=== PATIENT | male | born 1945 | race Caucasian/White ===

== ENCOUNTER 2017-05-30 07:15 | Observation (INO) | payer MEDICARE, BC ==
[2017-05-30] VITALS (11 sets, daily range): BP systolic 130–167; BP diastolic 57–86
[~2017-05-30] VITALS: Ht 175.3 cm; Wt 104.3 kg
--- NOTE | ~2017-05-30 | H ---
[address] [address] HISTORY AND PHYSICAL Name: MARIA G BASILIO Room: [address] Katya Thomas#: [id number] Admission: 05/30/17 Attend Phys: Adalberto Nesbitt MD Discharge: 05/31/17 Date of : 41 Report #: [id number] THIS REPORT FOR: //name// Please refer to the History and Physical performed in the physician's office. By: [facility] Staff CHAVO /SARAH
[2017-05-30 08:13] LABS: HEMATOCRIT 37.7 % (42.0-52.0); HEMOGLOBIN 13.4 gm/dL (14.0-18.0); MCH 32.3 pg (26.0-34.0); MCHC 35.6 g/dL (28.0-37.0); RBC 4.14 mil/uL (4.50-6.00); WBC 3.6 thou/uL (4.0-11.0)
[2017-05-30] MEDS ORDERED: COZAAR 50 MG TA50 M2 PO (08:23)
[2017-05-30] MEDS ORDERED: LIPITOR10 MG PO (08:23)
[2017-05-30] MEDS ORDERED: OMEPRAZOLE 20 M20 M1 PO (08:24)
[2017-05-30] MEDS ORDERED: COREG25 MG PO (08:24)
[2017-05-30] MEDS ORDERED: ASPIR 8181 MG PO (08:25)
[2017-05-30] MEDS ORDERED: FISH OIL 1,001000 M2 PO (08:25)
[2017-05-30 08:26] LABS: APTT 26.8 Seconds (25.0-31.3); INR 1.1; PROTIME 10.9 Seconds (9.20-11.50)
[2017-05-30] MEDS ORDERED: UNICOMPLEX M TA1 TA1 PO (08:26)
[2017-05-30] MEDS ORDERED: GLUCOSAMINE HC500 MG PO (08:27)
[2017-05-30 08:28] LABS: ANION GAP 11 mmol/L (7-16); BUN 13 mg/dL (7-18); CALCIUM 8.5 mg/dL (8.5-10.1); CHLORIDE 103 mmol/L (98-107); CO2 27 mmol/L (21-32); CREATININE 0.9 mg/dL (0.6-1.3); GLUCOSE 168 mg/dL (70-99); POTASSIUM 4.5 mmol/L (3.5-5.1); SODIUM 141 mmol/L (136-145)
[2017-05-30 08:33] LABS: ALKALINE PHOSPHATASE 66 U/L (46-116); CHOLESTEROL 140 mg/dL (<200); HDL CHOLESTEROL 55 mg/dL (>40); LDL CHOLESTEROL 74 mg/dL (<100); SGOT 18 U/L (15-37); SGPT 33 U/L (30-65); TC:HDL 2.5 Ratio (Not establshd); TOTAL BILIRUBIN 0.6 mg/dL (<0.1-1.0); TOTAL PROTEIN 7.2 g/dL (6.4-8.2); TRIGLYCERIDE 57 mg/dL (<150); VLDL 11 mg/dL (<40)
[2017-05-30 08:49] LABS: SERUM ASSESSMENT Clear
--- NOTE | 2017-05-30 12:00 | NUR ---
POST HAERT CATH TO 225 REPORT GIVEN AT BEDSIDE PATIENT WITHOUT C/O PAIN R GROIN SITE ASSESSED, SCANT AMT OF BLD, WILL CONT TO MONITOR INSTRUCTION GIVEN ON ACTIVITY RESTRICTIONS SPOUSE AT BEDSIDE BOTH ORIENTED TO AND CALL LIGHT
--- NOTE | 2017-05-30 18:21 | NUR ---
PATIENT SITTING UP IN BED AND WATCHING TV AT BEDSIDE REMAINS A AND O X 4 SB/1ST DEGR LUNGS CTA/DIM/RA O2 SATS MID 90S C/O SOA AT TIMES, IMPROVING WILL CONT TO MONITOR DR NOTIFIED GOOD APPETIE LAST BM REPORTED T-1 GOOD UO APPROX 600CC+ DARK YELLOW URINE UP WITH STANDBY IV 20 GA L HAND IVF NS AT 125CC R GROIN SITE NO EDEMA SCANT DRY BLD DIME SIZE CONT TO MONITOR NO C/O PAIN CALL LIGHT IN REACH AND INSTRUCTION GIVEN AND FOLLOWED
[2017-05-31] VITALS: BP 131/71
--- NOTE | 2017-05-31 01:39 | NUR ---
RECIEVED REPORT AT 1930. ASSESSMENT COMPLETED CHARTED. NO C/O PAIN OR DISCOMFORT. POST TRONIC MACHINE OPERATOR INSERTION SITE IS BRUISED BUT SOFT, NO PAIN ASSOCIATED WITH AREA. PT ABLE TO MAKE NEEDS KNOWN, CALL LIGHT WITHIN REACH, IV IN LEFT FOREARM RUNNING NS AT 125. POSSIBLE DISCHARGE TOMORROW. WILL CONTINUE WITH PLAN OF CARE.
[2017-05-31 04:00] VITALS: BP 162/81
[2017-05-31 05:30] LABS: HEMATOCRIT 33.3 % (42.0-52.0); MCH 32.8 pg (26.0-34.0); MCHC 35.9 g/dL (28.0-37.0); MCV 91.3 fL (80.0-100.0); MPV 8.1 fl. (7.2-11.1); RBC 3.65 mil/uL (4.50-6.00); RDW-CV 13.8 % (10.5-14.5); WBC 4.8 thou/uL (4.0-11.0)
[2017-05-31 05:52] LABS: ALBUMIN 3.6 g/dL (3.4-5.0); ALKALINE PHOSPHATASE 57 U/L (46-116); ANION GAP 7 mmol/L (7-16); BUN 9 mg/dL (7-18); CALCIUM 8.3 mg/dL (8.5-10.1); CHLORIDE 107 mmol/L (98-107); CO2 30 mmol/L (21-32); CREATININE 0.9 mg/dL (0.6-1.3); GLUCOSE 132 mg/dL (70-99); POTASSIUM 3.7 mmol/L (3.5-5.1); SGOT 13 U/L (15-37); SGPT 27 U/L (30-65); SODIUM 144 mmol/L (136-145); TOTAL BILIRUBIN 0.5 mg/dL (<0.1-1.0); TOTAL PROTEIN 6.2 g/dL (6.4-8.2); TROPONIN-I LEVEL <0.06 ng/mL (<0.06)
--- NOTE | 2017-05-31 07:20 | NUR ---
CHANGE OF SHIFT BEDSIDE REPORT GIVEN PATIENT SEEN AT BEDSIDE IN BED WATCHING TV NO REQUESTS AT THIS TIME ASSUMED PATIENT CARE
[2017-05-31 08:00] VITALS: BP 170/83
[2017-05-31 10:25] VITALS: BP 156/86
[2017-05-31 11:57] VITALS: BP 156/86
[2017-05-31] MEDS ORDERED: BRILINTA90 MG PO (11:57)
[2017-05-31 12:00] VITALS: BP 156/86
--- NOTE | 2017-05-31 13:08 | CARD ---
[address] [address] CARDIAC CATH REPORT Name: MARIA G BASILIO Room: [address] Katya Thomas#: [id number] Admission: 05/30/17 Attend Phys: Adalberto Nesbitt MD Discharge: Date of : 43 Report #: [id number] THIS REPORT FOR: //name// APPROVED REPORT Study performed: 05/30/2017 08:30:57 Patient Details Patient Status: Out-Patient Room #: The patient is a 72 year-old male Event Personnel Jose M Martinez Marine Services Technician, Elva Longoria RN Cow Tester, Sean Curiel (R) Monitor, Moisés, Esmer Mindy RTR Scrub Procedures Performed Art Access - R femoral artery* LILA Place w/wo Plasty Single LAD [id number] Hemostasis w/ Angioseal , Left Heart Catheterization Indication Unstable angina Risk Factors Hypercholesterolemia, Hypertension Admission/Lab Medications/Medications given during procedure Aspirin, Platelet Aff. Inhib., Heparin Unfract., Angiomax bolus and infusion Procedure Narrative The patient was brought electively to the Cardiac Catheterization Laboratory and was prepped and draped in a sterile manner. The right femoral was infiltrated with 2% Lidocaine subcutaneous anesthesia. A Boody 6 FR sheath was inserted into the right femoral artery. Coronary angiography was performed using coronary diagnostic catheters. The right coronary system was accessed and visualized with a Diagnostic catheter. The left coronary system was accessed and visualized with a Diagnostic catheter. The left ventricle was accessed and visualized with a Diagnostic catheter. Left ventricular/Aortic Valve gradient assessed via catheter pullback. Left ventriculogram was performed in MARTINEZ projection. Pre-demployment femoral angiogram was performed . Closure device was deployed with a Fr Angioseal STS 6Fr. The patient tolerated [place] [address] CARDIAC CATH REPORT Name: MARIA G BASILIO Room: [address]#: [id number] Admission: 05/30/17 Attend Phys: Adalberto Nesbitt MD Discharge: Date of : 41 Report #: [id number] there were no complications associated with the procedure. There was no hematoma. Intraoperative Conscious Sedation Sedation start time: 942 Case end Time: 1108 Fentanyl 50 mcg Versed 2 mg Dose: 4045 mGy Contrast Type and Amount: Visipaque 540 ml Coronary Angiography The patient's coronary anatomy is right dominant. Diagnostic Cath Left Main 10% distal narrowing LAD 80 Percent tubular mid LAD stenosis Circumflex 50% calcified proximal circumflex stenosis Right Coronary 100% mid right coronary occlusion with prominent [id number]-[id number] collaterals filling the distal right coronary artery Left Ventriculography The left ventricle is normal in size with normal contractility. The left ventricular ejection fraction is estimated to be 60%. Left ventricular wall motion abnormalities are not present. There is no mitral insufficiency. IVUS Anticoagulation was achieved with Heparin. IVUS Findings FFR was performed on the mid LAD segment with a minimum value of 0.78 without requirement for adenosine provocation, reflecting hemodynamic significance. Hemodynamics The aortic pressure is 107/53 mmHg with a mean of 75 mmHg. The left ventricular pressure is 111/8 mmHg with a mean of mmHg. The left ventricular end diastolic pressure is 14 mmHg. There was no gradient across the aortic valve upon pullback. PCI Technique Lesion Anticoagulation was achieved with Angiomax. Patient was preloaded with Ticagrelor PO 180 mg. Percutaneous coronary intervention was performed on the proximal left anterior [place] [address] CARDIAC CATH REPORT Name: MARIA G BASILIO Room: [address] M.R.#: [id number] Admission: 05/30/17 Attend Phys: Adalberto Nesbitt MD Discharge: Date of : 43 Report #: [id number] The lesion stenosis prior to intervention was 80% with ANGELA 3 flow. A 6FR XB 3.5 100CM Guide Catheter was used to engage the ostium. BALLOON DILATION A Balloon catheter Trek RX 2.5 X 15 was inserted and inflated up to 12.00atm for 13seconds. Additional Inflation: 12.00atm for 15seconds. STENT DEPLOYMENT A drug-eluting stent Xience Alpine RX 2.5X33, 2.25x8 was inserted and inflated up to 12.00atm for 14seconds. Additional Inflation: 14.00atm for 18seconds. Another Drug Eluting stent used it was a Xience Alpine RX 2.25x8 was inserted and inflated up to 10 devon for 12 seconds. Additional Inflation of 11 devon for 11 seconds. POST STENT DEPLOYMENT BALLOON DILATION A Balloon catheter NC Trek RX 2.5 X 12 was inserted and inflated up to 12.00atm for 12seconds. Additional Inflation: 15.00atm for 14seconds. Additional Inflation: 18.00atm for 13seconds. A Balloon Catheter NC Trek RX 2.75x12 was inserted and inflated up to 15 devon for 14 seconds. Additional Inflation 17 devon for 12 seconds. Additional Inflation 18 devon for 13 seconds. Final angiography reveals 10 % stenosis with ANGELA 3 flow. BALLOON DILATION A Balloon catheter FFR was performed on the mid LAD segment with a minimum value of 0.78 without requirement for adenosine provocation, reflecting hemodynamic significance. was inserted and inflated up to devon for seconds. Conclusion #1 significant coronary artery disease characterized by the following: A 10% distal left main coronary artery narrowing, B 80% calcified tubular mid LAD stenosis with 75% distal apical narrowing, C 50% calcified proximal circumflex stenosis, D dominant right coronary artery which is 100% occluded in its midportion with hljs-fu-jfsya collaterals filling the distal [place] [address] CARDIAC CATH REPORT Name: MARIA G BASILIO Room: [address] Katya Thomas#: [id number] Admission: 05/30/17 Attend Phys: Adalberto Nesbitt MD Discharge: Date of : 41 Report #: [id number] #2 normal left ventricular systolic function, estimated ejection fraction being 60% #3 normal left-sided hemodynamics study #4 fractional flow reserve performed on the moderately severe mid LAD stenosis with a minimum value 0.78 without requirement for adenosine provocation, suggesting hemodynamic significance #5successful percutaneous coronary intervention at the site of 80% tubular mid LAD stenosis with deployment of 2 drug-eluting stents with 10% residual narrowing following stent deployment and ANGELA-3 flow to the distal vessel. Recommendations Cardiac Rehabilitation Referral Aggressive Medical Therapy Medications Administered Aspirin (any) Ticagrelor Diagnostic Cath Approved by: Jose M Martinez MD Date/Time: 05/31/17 at 1305 hrs <ELECTRONICALLY SIGNED> By: Jose M Martinez MD, FAC 05/31/17 1308 1308 1308Jotanisha Martinez MD, FACC /INF
--- NOTE | 2017-05-31 13:30 | NUR ---
PATIENT DCD TO HOME DC INFO GIVEN AND ACKNOWLEDGED AND SIGNED COPIES GIVEN IV AND HEART MONITOR REMOVED PERSONAL BELONGINGS RETURNED PATIENT ASSISTED OUT VIA WC GOOD CONDITION TO WAITING CAR
--- NOTE | 2017-05-31 17:21 | EKG ---
[place] [address] ELECTROCARDIOGRAM REPORT Name: PRAFULMARIA G Anh Room: [address]#: [id number] Admission: 05/30/17 Attend Phys: Adalberto Nesbitt MD Discharge: 05/31/17 Date of : 43 Report #: [id number] THIS REPORT FOR: //name// [facility] Test Date: 2017-05-30 Test Time: 08:42:22 Pat Name: MARIA G BASILIO Department: Room: [facility] Gender: M Drafter Electronic: : 1945 Requested By: Jose M Martinez Order Number: [id number] Anali MD: Adalberto Nesbitt Measurements Intervals [place] Rate: 51 P: 29 CO: 211 QRS: -30 QRSD: 108 T: 33 QT: 457 QTc: 421 Interpretive Statements Sinus rhythm Left axis deviation No previous ECG available for comparison Electronically Signed On 05-31-2017 17:21:22 CDT by Adalberto Nesbitt [email or web address] <ELECTRONICALLY SIGNED> By: Adalberto Nesbitt MD, [facility] 05/31/17 1721 0842 0842 Adalberto Nesbitt MD, FACC /EPI
--- NOTE | 2017-05-31 17:25 | EKG ---
[place] [address] ELECTROCARDIOGRAM REPORT Name: BASILIOMARIA G Anh Room: [address]#: [id number] Admission: 05/30/17 Attend Phys: Adalberto Nesbitt MD Discharge: 05/31/17 Date of : 41 Report #: [id number] THIS REPORT FOR: //name// [facility] Test Date: 2017-05-30 Test Time: 14:45:47 Pat Name: MARIA G BASILIO Department: Room: [facility] Gender: M Front Edger: 27 : 1945 Requested By: Jose M Martinez Order Number: [id number] Anali MD: Adalberto Nesbitt Measurements Intervals [place] Rate: 56 P: 37 DE: 213 QRS: -35 QRSD: 110 T: 41 QT: 435 QTc: 420 Interpretive Statements Sinus rhythm Borderline prolonged DE interval Left axis deviation No previous ECG available for comparison Electronically Signed On 05-31-2017 17:24:56 CDT by Adalberto Nesbitt [email or web address] <ELECTRONICALLY SIGNED> By: Adalberto Nesbitt MD, [facility] 05/31/17 1724 1445 1445 Adalberto Nesbitt MD, FACC /EPI
--- NOTE | 2017-05-31 17:27 | EKG ---
[place] [address] ELECTROCARDIOGRAM REPORT Name: PRAFULMARIA G Anh Room: [address]#: [id number] Admission: 05/30/17 Attend Phys: Adalberto Nesbitt MD Discharge: 05/31/17 Date of : 41 Report #: [id number] THIS REPORT FOR: //name// [facility] Test Date: 2017-05-31 Test Time: 07:45:56 Pat Name: MARIA G BASILIO Department: Room: [facility] Gender: M Supervisor Agency Appointments: HECTOR : 1945 Requested By: Jose M Martinez Order Number: [id number] Anali MD: Adalberto Nesbitt Measurements Intervals [place] Rate: 59 P: 7 MS: 203 QRS: -35 QRSD: 110 T: 38 QT: 434 QTc: 430 Interpretive Statements Sinus rhythm Left axis deviation Abnormal R-wave progression, late transition No previous ECG available for comparison Electronically Signed On 05-31-2017 17:26:46 CDT by Adalberto Nesbitt [email or web address] <ELECTRONICALLY SIGNED> By: Adalberto Nesbitt MD, [facility] 05/31/17 1726 4 Adalberto Nesbitt MD, FACC /EPI
--- NOTE | 2017-06-01 09:56 | D ---
[address] [address] DISCHARGE SUMMARY Name: MARIA G BASILIO Room: [address] Katya Thomas#: [id number] Admission: 05/30/17 Attend Phys: Adalberto Nesbitt MD Discharge: 05/31/17 Date of : 43 Report #: [id number] THIS REPORT FOR: //name// CC: Adalberto Roque DATE OF SERVICE: 05/31/2017 HOSPITAL COURSE: The patient is a very pleasant 72-year-old male presented with chest discomfort on exertion, quite typical of angina with an increase in frequency and severity of episodes of late. He has underlying hypertension, hypercholesterolemia and moderate weight excess. In this context, he underwent cardiac catheterization on 05/30/2017 and that study revealed tubular 80% calcified mid LAD stenosis and I performed FFR on that with a minimal value of 0.78 without provocation with adenosine. This clearly suggested hemodynamic significance. I deployed 2 drug-eluting stents in the mid LAD with 0% residual narrowing and ANGELA 3 flow of the distal vessel. He did well post-procedurally and there was good hemostasis at the right femoral site of catheterization. He also had a 50%-60% calcified proximal circumflex stenosis, which I did not approach in that setting. The patient ambulated in the hallways without difficulty and there was minimal ecchymosis of the right femoral site of catheterization. Lab revealed a sodium 144, potassium 3.7, BUN 9, creatinine 0.9, hemoglobin 12.0, white blood cell count 4800 with 150,000 platelets. Cholesterol 140, triglycerides 57, HDL 55, LDL 74 mg percent. He was discharged to home in stable condition on the following medications: Aspirin 81 mg daily, atorvastatin 10 mg at bedtime, carvedilol 25 mg b.i.d., fish oil 1000 mg daily, glucosamine 500 mg daily, losartan 100 mg daily, multivitamin with iron 1 tablet daily, omeprazole 20 mg daily, and ticagrelor 90 mg b.i.d. He is scheduled to return to see me in 2 weeks with continuing care with Dr. Nesbitt subsequent to that initial visit. FINAL DISCHARGE DIAGNOSES: 1. Unstable angina. 2. Coronary artery disease. 3. Status post percutaneous transluminal coronary angioplasty with stenting of the mid left anterior descending. 4. Hypercholesterolemia. 5. [place] [address] DISCHARGE SUMMARY Name: MARIA G BASILIO Room: [address] William#: [id number] Admission: 05/30/17 Attend Phys: Adalberto Nesbitt MD Discharge: 05/31/17 Date of : 41 Report #: [id number] 6. Moderate weight excess. PROCEDURES: 05/30/2017 - left heart catheterization, left ventriculography, selective coronary arteriography and percutaneous coronary intervention of the mid LAD. Thus, the patient is discharged to home in stable condition on the aforementioned medications with followup as iterated above. <ELECTRONICALLY SIGNED> By: Jose M Martinez MD, FAC 06/01/17 0956 1033 1105John Olu Martinez MD, FAC /nt
== END 2017-05-31 13:30 | disposition home or self-care (01) ==
LOC: M.CL 07:15 → M.TBA-CV 11:30 → M.2W 11:30
PROVIDERS: Internal Medicine; ADMIT Internal Medicine Cardiovascular Disease
DX: I25.110 Atherosclerotic heart disease of native coronary artery with unstable angina pectoris (principal); I10 Essential (primary) hypertension; E78.00 Pure hypercholesterolemia, unspecified; E11.9 Type 2 diabetes mellitus without complications; R63.5 Abnormal weight gain; Z82.49 Family history of ischemic heart disease and other diseases of the circulatory system; Z87.891 Personal history of nicotine dependence

== ENCOUNTER 2017-07-30 08:26 | Observation (INO) | payer MEDICARE, BC ==
[~2017-07-30] VITALS: Ht 175.3 cm; Wt 100.7 kg
[2017-07-30] VITALS (10 sets, daily range): BP systolic 154–190; BP diastolic 72–108
--- NOTE | ~2017-07-30 | H ---
[address] [address] HISTORY AND PHYSICAL Name: MARIA G BASILIO Room: [address] Katya Thomas#: [id number] Admission: 07/30/17 Attend Phys: Jose M Martinez MD, Discharge: 07/31/17 Date of : 41 Report #: [id number] THIS REPORT FOR: //name// Please refer to the History and Physical performed in the physician's office. By: [id number] Records Staff CHAVO /SARAH
[~2017-07-30 08:26] MED LIST: ASPIR 8181 MG PO; BRILINTA90 MG PO; COREG25 MG PO; COZAAR 50 MG TA50 M2 PO; FISH OIL 1,001000 M2 PO; GLUCOSAMINE HC500 MG PO; LIPITOR10 MG PO; OMEPRAZOLE 20 M20 M1 PO; UNICOMPLEX M TA1 TA1 PO
[2017-07-30 09:07] LABS: HEMATOCRIT 38.7 % (42.0-52.0); HEMOGLOBIN 13.2 gm/dL (14.0-18.0); MCH 31.7 pg (26.0-34.0); MCHC 34.2 g/dL (28.0-37.0); MCV 92.7 fL (80.0-100.0); MPV 8.1 fl. (7.2-11.1); RBC 4.18 mil/uL (4.50-6.00); RDW-CV 13.5 % (10.5-14.5); WBC 3.3 thou/uL (4.0-11.0)
[2017-07-30 09:16] LABS: APTT 27.1 Seconds (25.0-31.3); INR 1.1; PROTIME 10.6 Seconds (9.20-11.50)
[2017-07-30 09:18] LABS: ANION GAP 8 mmol/L (7-16); BUN 14 mg/dL (7-18); CALCIUM 9.1 mg/dL (8.5-10.1); CHLORIDE 105 mmol/L (98-107); CO2 28 mmol/L (21-32); CREATININE 0.9 mg/dL (0.6-1.3); GLUCOSE 149 mg/dL (70-99); POTASSIUM 4.2 mmol/L (3.5-5.1); SODIUM 141 mmol/L (136-145)
[2017-07-30 09:25] LABS: ALKALINE PHOSPHATASE 67 U/L (46-116); CHOLESTEROL 124 mg/dL (<200); HDL CHOLESTEROL 50 mg/dL (>40); LDL CHOLESTEROL 62 mg/dL (<100); SGOT 11 U/L (15-37); SGPT 24 U/L (30-65); TC:HDL 2.5 Ratio (Not establshd); TOTAL BILIRUBIN 0.5 mg/dL (<0.1-1.0); TOTAL PROTEIN 7.5 g/dL (6.4-8.2); TRIGLYCERIDE 64 mg/dL (<150); VLDL 13 mg/dL (<40)
[2017-07-30 09:27] LABS: SERUM ASSESSMENT Clear
[2017-07-30] MEDS ORDERED: PLAVIX 75 MG TA75 M1 PO (09:47)
--- NOTE | 2017-07-30 14:06 | NUR ---
PT ADMITTED TO ROOM 208 POST HEART CATH WITH PLACEMENT OF 2 STENTS TO CIRCUMFLEX. PT INSTRUCTED IMMOBILIZATION TO RLE. COMPLIANT WITH INSTRUCTIONS. NS INFUSING ORDERED. RT GROIN ACCESS SITE DRESSING C/D/I. NO EVIDENCE OF HEMATOMA AT THIS TIME. CLWR. WCTM.
--- NOTE | 2017-07-30 15:04 | EKG ---
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: : 1945 Requested By: Jose M Martinez Order Number: [id number] Reading MD: Jose M Martinez Measurements Intervals [place] Rate: 52 P: 23 AR: 210 QRS: -28 QRSD: 107 T: 70 QT: 438 QTc: 408 Interpretive Statements Sinus rhythm Borderline left axis deviation Compared to ECG 05/31/2017 07:45:56 No significant changes Electronically Signed On 07-30-2017 15:04:14 CDT by Jose M Martinez [email or web address] <ELECTRONICALLY SIGNED> By: Jose M Martinez MD, [facility] 07/30/17 1504 D: 06/928 8 Jose M Martinez MD, FACC /EPI
--- NOTE | 2017-07-30 15:07 | EKG ---
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
--- NOTE | 2017-07-30 17:39 | NUR ---
PT PROGRESSING TOWARDS GOALS THIS SHIFT. VERY RESTLESS WITH INSTRUCTED IMMOBLIZATION TO RLE. PRN TYLENOL ADMINISTERED. PT SR. VSS. NO EVIDENCE OF HEMATOMA TO ACCESS SITE. NO OTHER CONCERNS AT THIS TIME. CLWR. WCTM.
[2017-07-31 00:39] VITALS: BP 154/82
--- NOTE | 2017-07-31 01:51 | NUR ---
RECIEVED REPORT AND ASSUMED CARE OF PATIENT AT 1930. LAND DEVELOPMENT PROJECT MANAGER IN PLACE TRACING SR. ASSESSMENT AND VITALS COMPLETED CHARTED, VSS. PATIENT A&OX4. DENIES PAIN AND DISCOMFORT. RIGHT GROIN CATH SITE DRESSING C/D/I. NO BLEEDING OR HEMATOMA NOTED. GOAL IS TO REMAIN FREE OF CHEST PAIN WITH NO COMPLICATIONS OF CATH SITE. CALL LIGHT WITHIN REACH
[2017-07-31 04:00] VITALS: BP 142/86
[2017-07-31 04:58] LABS: HEMATOCRIT 37.3 % (42.0-52.0); HEMOGLOBIN 13.3 gm/dL (14.0-18.0); MCH 32.3 pg (26.0-34.0); MCHC 35.8 g/dL (28.0-37.0); MCV 90.2 fL (80.0-100.0); MPV 7.6 fl. (7.2-11.1); RBC 4.13 mil/uL (4.50-6.00); RDW-CV 13.4 % (10.5-14.5); WBC 5.4 thou/uL (4.0-11.0)
--- NOTE | 2017-07-31 05:08 | NUR ---
PATIENT PROGRESSING TOWARDS GOALS. PATIENT REMAINS FREE OF CHEST PAIN AND NO BLEEDING OR HEMATOMA NOTED AT RIGHT GROIN CATH SITE. RAT BREEDER CONTINUES TO TRACE SR. VSS. CALL LIGHT WITHIN REACH.
[2017-07-31 05:24] LABS: ALBUMIN 3.6 g/dL (3.4-5.0); ALKALINE PHOSPHATASE 64 U/L (46-116); ANION GAP 9 mmol/L (7-16); BUN 12 mg/dL (7-18); CALCIUM 8.7 mg/dL (8.5-10.1); CHLORIDE 104 mmol/L (98-107); CO2 28 mmol/L (21-32); CREATININE 0.9 mg/dL (0.6-1.3); GLUCOSE 136 mg/dL (70-99); POTASSIUM 3.7 mmol/L (3.5-5.1); SGOT 12 U/L (15-37); SGPT 23 U/L (30-65); SODIUM 141 mmol/L (136-145); TOTAL BILIRUBIN 0.8 mg/dL (<0.1-1.0); TOTAL PROTEIN 6.9 g/dL (6.4-8.2); TROPONIN-I LEVEL <0.06 ng/mL (<0.06)
[2017-07-31 07:56] VITALS: BP 158/80
[2017-07-31 08:20] VITALS: BP 128/73
[2017-07-31 09:30] VITALS: BP 128/73
--- NOTE | 2017-07-31 10:27 | NUR ---
ASSUMED CARE OF PT AT 0730. PT RESTING IN BED WAITING FOR BREAKFAST. PT A&0X4, DENIES ANY PAIN OR SHORTNESS OF BREATH AT THIS TIME. PT HAD HEART CATH T-1. RIGHT GROIN CATH SITE IS C/D/I- SMALL AMOUNT OF DRIED BLOOD NOTED, SOFT NONTENDER. CARDIOLOGY NURSE, ANABELLE HERE THIS AM AND TOOK DRESSING OFF AND PLACED BANDAID. PT WILL DISCHARGE HOME THIS AFTERNOON. PT TRACING SR ON THE DISTRICT CAPTAIN. ON RA SAT UPPER 90'S. PT UP AD ADELA IN ROOM. AM ASSESSMENT CHARTED. MEDICATIONS PER APR. PT REPOSITIONS SELF. HOURLY ROUNDING OBSERVED. BED IN LOW POSITION. CALL LIGHT WITHIN REACH. WILL CONTINUE PLAN OF CARE.
[2017-07-31] MEDS ORDERED: EFFIENT10 MG PO (11:28)
[2017-07-31] MEDS ORDERED: NITROGLYCERIN0.4 MG SUBLING (11:29)
--- NOTE | 2017-07-31 12:28 | NUR ---
DISCHARGE ORDERS RECEIVED. DISCHARGE INSTRUCTIONS, CARE NOTES, SCRIPTS AND FOLLOW UP APPS GIVEN TO PT. PT COMMUNICATES UNDERSTANDING OF DISCHARGE TEACHING. IV AND MEDICAL REVIEWER REMOVED. PT DISCHARGED WITH ALL BELONGINGS AND PAPERWORK VIA WHEELCHAIR WITH NURSING STAFF TO SPOUSE OWN PERSONAL VEHICLE.
--- NOTE | 2017-08-01 12:01 | D ---
[address] [address] DISCHARGE SUMMARY Name: MARIA G BASILIO Room: [address] Katya Thomas#: [id number] Admission: 07/30/17 Attend Phys: Jose M Martinez MD, Discharge: 07/31/17 Date of : 41 Report #: [id number] THIS REPORT FOR: //name// CC: Jose M Isabel [facility] DATE OF SERVICE: 07/31/2017 The patient is discharged from [facility]. FINAL DISCHARGE DIAGNOSES: 1. Unstable angina. 2. Coronary artery disease, status post prior stenting of the LAD and stenting of the circumflex on 07/30/2017. 3. Hypertension. 4. Type 2 diabetes. 5. Hyperlipoproteinemia. 6. Obesity. PROCEDURES: -- 07/30/2017, left heart catheterization, selective coronary arteriography and percutaneous coronary intervention with deployment of drug-eluting stents in the second marginal branch of the circumflex and the ostial/proximal circumflex. The patient is a very pleasant 72-year-old male with known multivessel coronary artery disease. He has several weeks status post stenting of high-grade sequential proximal and mid LAD stenosis. He has chronic total occlusion of the right with left to right collaterals filling the right coronary, had a 70-80% ostial circumflex, with 90% second marginal stenosis noted on prior CT angiograms. In this context, he underwent recatheterization on 07/30/2017, which revealed widely patent LAD stents and chronic total occlusion of the right coronary artery as previously defined. He had a 90% heavily calcified stenosis in the second marginal branch of the circumflex and 70-80% ostial circumflex narrowing. I deployed one Xience Alpine drug-eluting stent in the marginal branch with 0% residual narrowing and 40% narrowing beyond the stented region. I placed one 2.75 x 15 Xience Alpine in the ostial portion of the circumflex with a 10% residual narrowing and ANGELA 3 flow of the distal vessel. The patient did well post-procedurally, and there was good hemostasis at the left femoral site of catheterization. LABORATORY DATA: On 07/31 revealed sodium 141, potassium 3.7, BUN 12, creatinine 0.9. Hemoglobin 13.3, white blood cell count 5400, with 167,000 platelets. Cholesterol 124, triglycerides 64, HDL 50, LDL 62. Troponin less than 0.06. He was discharged to home in stable condition on the following medications: Aspirin 81 mg daily, atorvastatin 10 mg at bedtime, carvedilol [address] [place] [address] DISCHARGE SUMMARY Name: MARIA G BASILIO Room: [address] Katya Thomas#: [id number] Admission: 07/30/17 Attend Phys: Jose M Martinez MD, Discharge: 07/31/17 Date of : 41 Report #: [id number] b.i.d., fish oil 1000 mg daily, glucosamine 500 mg daily, losartan 100 mg daily, multivitamin with minerals 1 tablet daily, omeprazole 20 mg daily and Effient 10 mg daily, with a 60 mg periprocedural dose. I will plan to see the patient in followup on 08/27/2017 at 1120 hours. He is discharged to home in stable condition on the aforementioned medications with followup as iterated above. <ELECTRONICALLY SIGNED> By: Jose M Martinez MD, [facility] 08/01/17 1201 1209 1305Jotanisha Martinez MD, [facility] /nt
--- NOTE | 2017-08-01 12:48 | EKG ---
[place] [address] ELECTROCARDIOGRAM REPORT Name: PRAFULMARIA G Anh [address]#: [id number] Admission: 07/30/17 Attend Phys: Jose M Martinez MD, Discharge: 07/31/17 Date of : 41 Report #: [id number] THIS REPORT FOR: //name// [facility] Test Date: 2017-07-31 Test Time: 04:55:38 Pat Name: MARIA G BASILIO Department: Room: Gender: Pressurizer: : 1945 Requested By: Jose M Martinez Order Number: [id number] Anali MD: Carlton Jacob Measurements Intervals [place] Rate: 69 P: 16 [place]: 179 QRS: -38 QRSD: 107 T: 63 QT: 412 QTc: 442 Interpretive Statements Sinus rhythm nonspecific t wave changes Inferior infarct, old Compared to ECG 07/30/2017 13:48:31 no change Electronically Signed On 08-01-2017 12:48:38 CDT by Carlton Jacob [email or web address] <ELECTRONICALLY SIGNED> By: Carlton Jacob MD, [facility] 08/01/17 1248 0455 0455 Carlton Jacob MD, [facility] /EPI
--- NOTE | 2017-08-02 11:29 | CARD ---
[address] [address] CARDIAC CATH REPORT Name: MARIA G BASILIO Room: [address] Katya Thomas#: [id number] Admission: 07/30/17 Attend Phys: Jose M Martinez MD, Discharge: 07/31/17 Date of : 41 Report #: [id number] THIS REPORT FOR: //name// APPROVED REPORT Study performed: 07/30/2017 11:04:38 Patient Details Patient Status: Out-Patient Room #: The patient is a 72 year-old male Event Personnel Jose M Martinez Marine Firer, Shereen Hernandez RN Die Mechanic, Jennifer Lane RTR Scrub, Olivia Carreon RN Monitor, Sean Curiel (R) Monitor, Marsha Bowman Scrub Procedures Performed Art Access - R femoral artery* Left Heart Cath w/or w/o Coronaries [id number] [facility] L[address]A [address] w/wo Plasty Addl BR OM [address] w/wo Plasty Single CIRC [id number] Indication Unstable angina Risk Factors Hypercholesterolemia, Hypertension Previous Procedures/Diagnoses Previous PCI Admission/Lab Medications/Medications given during procedure Aspirin, Platelet Aff. Inhib., Angiomax bolus and infusion Procedure Narrative The patient was brought electively to the Cardiac Catheterization Laboratory and was prepped and draped in a sterile manner. The right femoral was infiltrated with 2% Lidocaine subcutaneous anesthesia. A 6fr Ultimum Sheath sheath was inserted into the right femoral artery. Coronary angiography was performed using coronary diagnostic catheters. The right coronary system was accessed and visualized with a 6fr JR 4 catheter. The left coronary system was accessed and visualized with a 6fr JL 4 catheter. The left ventricle was accessed and visualized with a 6fr Stright Pigtail catheter. Left ventricular/Aortic Valve gradient assessed [place] [address] CARDIAC CATH REPORT Name: MARIA G BASILIO Room: [address]#: [id number] Admission: 07/30/17 Attend Phys: Jose M Martinez MD, Discharge: 07/31/17 Date of : 43 Report #: [id number] Left ventriculogram was performed in MARTINEZ projection. Pre-demployment femoral angiogram was performed . Closure device was deployed with a 6 Fr Angioseal STS 6Fr. The patient tolerated the procedure well and there were no complications associated with the procedure. There was no hematoma. Intraoperative Conscious Sedation Sedation start time: 11:27 Case end Time: 12:48 Fentanyl 25 mcg Versed 2 mg Fluoro Time: 17.1 minutes Dose: DAP 997124 cGycm2 4617 mGy Contrast Type and Amount: 525 Coronary Angiography The patient's coronary anatomy is right dominant. Diagnostic Cath Left Main 0% narrowing LAD Widely patent proximal and mid LAD stents with 0% narrowing noted Circumflex Prominent though nondominant vessel with 80% very proximal calcified stenosis and 40% proximal second marginal narrowing with 90% calcified mid second marginal stenosis Right Coronary Dominant vessel with 100% mid vessel occlusion by prior cath with sdfg-in-lturt collaterals filling the distal right coronary artery Left Ventriculography Left Ventriculography was not performed. Hemodynamics The aortic pressure is 162/74 mmHg with a mean of mmHg. The left ventricular pressure is 149/2 mmHg with a mean of mmHg. The left ventricular end diastolic pressure is 14 mmHg. There was no gradient across the aortic valve upon pullback. Pullback from the left ventricle to the aorta revealed no gradient across the aortic valve. PCI Technique Lesion Anticoagulation was achieved with Angiomax. Percutaneous coronary intervention was performed on the second obtuse marginal branch segment. The lesion stenosis prior to intervention was 90% with ANGELA 3 flow. A 6FR XB 3.5 100CM Guide Catheter was used to engage the LCA ostium. A IG: ProwaterFlex 180CM Interventional [place] [address] CARDIAC CATH REPORT Name: BASILIOMARIA G Room: [address] Katya Thomas#: [id number] Admission: 07/30/17 Attend Phys: Jose M Martinez MD, Discharge: 07/31/17 Date of : 41 Report #: [id number] cross the lesion. BALLOON DILATION A Balloon catheter Mini Trek RX 2.0 X 12 was inserted and inflated up to 12.00atm for 16seconds. Additional Inflation: 16.00atm for 15seconds. STENT DEPLOYMENT A drug-eluting stent Xience Alpine RX 2.25X12 was inserted and inflated up to 6.00atm for 10seconds. Additional Inflation: 7.00atm for 11seconds. POST STENT DEPLOYMENT BALLOON DILATION A Balloon catheter NC Euphora 2.75x12 was inserted and inflated up to 12.00atm for 16seconds. Final angiography reveals 0 % stenosis with ANGELA flow. PCI Technique Lesion 2 Percutaneous Coronary Intervention was performed on the proximal circumflex artery segment. The lesion stenosis prior to intervention was 80% with ANGELA 3 flow. A 6FR XB 3.5 100CM Guide Catheter was used to engage the LCA ostium. A IG: ProwaterFlex 180CM Interventional Guidewire was used to cross the lesion. Stent Deployment A drug-eluting stent Xience Alpine RX 2.75X15 was inserted and inflated up to 10.00atm for 14seconds. Additional Inflation: 12.00atm for 15seconds. Additional Inflation: 14.00atm for 11seconds. Final angiography reveals 10 % stenosis with ANGELA 3 flow. Conclusion #1 significant coronary artery disease characterized by following: A widely patent proximal LAD stents with 50% distal narrowing with 70% ostial second diagonal narrowing B prominent though nondominant circumflex with 80% calcified proximal stenosis and 90% stenosis of the midportion of the second marginal branch C dominant right coronary artery with previously defined 100% mid vessel occlusion with cdsx-os-teklk collaterals filling the distal right coronary artery [address] [address] CARDIAC CATH REPORT Name: MARIA G BASILIO Room: [address] Katya Thomas#: [id number] Admission: 07/30/17 Attend Phys: Jose M Martinez MD, Discharge: 07/31/17 Date of : 41 Report #: [id number] #2 mild systemic systolic hypertension #3 successful percutaneous coronary intervention with deployment of drug-eluting stents at the sites of 80% proximal and 90% second marginal circumflex stenosis with 10 and 0% residual narrowings and ANGELA-3 flow the distal vessel Recommendations Cardiac Risk Reduction Program Aggressive Medical Therapy Medications Administered Aspirin (any) Prasugrel Diagnostic Cath Approved by: Jose M Martinez MD Date/Time: 08/02/17 at 1127 hrs. <ELECTRONICALLY SIGNED> By: Jose M Martinez MD, [facility] 08/02/179 28 28Jose M Martinez MD, FAC /INF
== END 2017-07-31 12:35 | disposition home or self-care (01) ==
LOC: M.CL 08:26 → M.2W 13:11 → M.TBA-CV 13:11 → M.2W 13:11
PROVIDERS: ADMIT Internal Medicine
DX: I25.110 Atherosclerotic heart disease of native coronary artery with unstable angina pectoris (principal); I10 Essential (primary) hypertension; E78.5 Hyperlipidemia, unspecified; E11.9 Type 2 diabetes mellitus without complications; E66.9 Obesity, unspecified; Z98.890 Other specified postprocedural states; Z87.891 Personal history of nicotine dependence; Z72.89 Other problems related to lifestyle; Z68.33 Body mass index [BMI] 33.0-33.9, adult; Z95.5 Presence of coronary angioplasty implant and graft

== ENCOUNTER 2017-10-15 07:21 | Observation (INO) | payer MEDICARE, BC ==
[~2017-10-15] VITALS: Ht 175.3 cm; Wt 101.6 kg
[2017-10-15] VITALS (18 sets, daily range): BP systolic 127–216; BP diastolic 65–109
--- NOTE | ~2017-10-15 | H ---
[address] [address] HISTORY AND PHYSICAL Name: MARIA G BASILIO Room: [address] Katya Thomas#: [id number] Admission: 10/15/17 Attend Phys: Jose M Martinez MD, Discharge: 10/16/17 Date of : 43 Report #: [id number] THIS REPORT FOR: //name// Please refer to the History and Physical performed in the physician's office. By: [id number] Records Staff CHAVO /SARAH
[~2017-10-15 07:21] MED LIST changes: +EFFIENT10 MG PO; +NITROGLYCERIN0.4 MG SUBLING; +PLAVIX 75 MG TA75 M1 PO
[2017-10-15 08:02] LABS: HEMOGLOBIN 14.8 gm/dL (14.0-18.0); MCH 31.9 pg (26.0-34.0); MCHC 34.4 g/dL (28.0-37.0); MCV 92.6 fL (80.0-100.0); MPV 7.9 fl. (7.2-11.1); RBC 4.64 mil/uL (4.50-6.00); RDW-CV 13.6 % (10.5-14.5); WBC 3.4 thou/uL (4.0-11.0)
[2017-10-15 08:11] LABS: APTT 27.6 Seconds (25.0-31.3); PROTIME 10.7 Seconds (9.20-11.50)
[2017-10-15] MEDS ORDERED: IMDUR 30 MG TAB30 M1 PO (08:23)
[2017-10-15 08:29] LABS: ANION GAP 8 mmol/L (7-16); BUN 15 mg/dL (7-18); CALCIUM 8.6 mg/dL (8.5-10.1); CHLORIDE 102 mmol/L (98-107); CO2 30 mmol/L (21-32); GLUCOSE 163 mg/dL (70-99); POTASSIUM 4.1 mmol/L (3.5-5.1); SODIUM 140 mmol/L (136-145)
[2017-10-15 08:34] LABS: ALBUMIN 4.1 g/dL (3.4-5.0); ALKALINE PHOSPHATASE 68 U/L (46-116); CHOLESTEROL 145 mg/dL (<200); HDL CHOLESTEROL 57 mg/dL (>40); LDL CHOLESTEROL 77 mg/dL (<100); SERUM ASSESSMENT Clear; SGOT 14 U/L (15-37); SGPT 26 U/L (30-65); TC:HDL 2.5 Ratio (Not establshd); TOTAL BILIRUBIN 0.6 mg/dL (<0.1-1.0); TOTAL PROTEIN 7.9 g/dL (6.4-8.2); TRIGLYCERIDE 58 mg/dL (<150); VLDL 12 mg/dL (<40)
--- NOTE | 2017-10-15 13:59 | EKG ---
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 10/15/17 1359 0759 0759 Jose M Martinez MD, FACC /EPI
--- NOTE | 2017-10-15 18:56 | NUR ---
PATIENT PROGRESSING TOWARDS GOALS. POST CARDIAC CATH BP ELEVATED. DR SIMMONS NOTIFIED. NEW ORDERS RECEIVED FOR AMLODIPINE. RIGHT GROIN CATH SITE IS BRUISED BUT SOFT, NO HEMATOMA NOTED. ADMISSION ASSESSMENT AND HISTORY COMPLETED. IVF INFUSING. ESCOBEDO CATHETER REMOVED AFTER BEDREST ORDERS WERE COMPLETED. THE PATIENT IS UP AD ADELA IN HIS ROOM WITH BATHROOM PRIVILEDGES. GAIT IS STEADY. HE DENIES ANY PAIN. NO SOA. WILL CONTINUE TO MONITOR.
[2017-10-16 00:32] VITALS: BP 174/87
--- NOTE | 2017-10-16 05:24 | NUR ---
PT IS ABLE TO COMMUNICATE HIS NEEDS TO STAFF EFFECTIVELY. HE HAS DENIED THE NEED FOR PAIN MEDICATION UP TO THIS TIME. POSSIBLE DISCHARGE LATER TODAY PENDING CARDIOLOGY MD APPROVAL. RIGHT GROIN CATH SITE SHOWS NO OBSERVABLE EVIDENCE OF A HEMATOMA AND DRESSING IS C/D/I UP TO THIS TIME.
[2017-10-16 05:33] LABS: HEMATOCRIT 41.5 % (42.0-52.0); HEMOGLOBIN 14.4 gm/dL (14.0-18.0); MCH 31.7 pg (26.0-34.0); MCHC 34.7 g/dL (28.0-37.0); MCV 91.4 fL (80.0-100.0); MPV 7.7 fl. (7.2-11.1); RBC 4.54 mil/uL (4.50-6.00); RDW-CV 13.8 % (10.5-14.5); WBC 5.1 thou/uL (4.0-11.0)
[2017-10-16 06:22] LABS: CALCIUM 8.2 mg/dL (8.5-10.1); CREATININE 0.9 mg/dL (0.6-1.3); POTASSIUM 4.3 mmol/L (3.5-5.1); TOTAL BILIRUBIN 0.7 mg/dL (<0.1-1.0); TOTAL PROTEIN 7.1 g/dL (6.4-8.2); TROPONIN-I LEVEL 0.23 ng/mL (<0.06)
[2017-10-16 07:30] VITALS: BP 166/97
[2017-10-16 08:51] VITALS: BP 197/89
[2017-10-16 08:56] VITALS: BP 166/97
[2017-10-16] MEDS ORDERED: NORVASC5 MG PO (09:58)
--- NOTE | 2017-10-16 09:58 | NUR ---
RECEIVED PT CARE 0700. HE IS ALERT AND ORIENTED X4, VSS. PROJECT MANAGEMENT SPECIALIST TRACING SR-SB. HE DENIES PAIN. NO SOA. O2 SAT 96% ON ROOM AIR. AM ASSESSMENT CHARTED. MEDS PER MAR. UP AD ADELA IN ROOM. AMBULATING IN HALLWAY. PLANNING FOR DC TO HOME TODAY.
--- NOTE | 2017-10-16 10:58 | NUR ---
RECEIVED DISCHARGE ORDERS PER DR SIMMONS. IV DISCONTINUED. VP OF DIGITAL MARKETING REMOVED AND RETURNED TO NURSE'S DESK. EDUCATED THE PATIENT AND HIS ON F/U APPT WITH DR SIMMONS. EDUCATED ON HOME MEDICATIONS TO CONTINUED, NEW SCRIPT FOR AMYLODIPINE CALLED INTO THE [facility] IN [place], [place]. ALL HIS BELONGINGS ARE PACKED AND LEAVING WITH THE PATIENT. HE DENIES ANY QUESTIONS OR CONCERNS. HE IS LEAVING VIA AMBULATORY PER HIS REQUEST.
--- NOTE | 2017-10-16 16:21 | EKG ---
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 Consultant: : 1945 Requested By: Jose M Martinez Order Number: [id number] Reading MD: Jose M Martinez Measurements Intervals [place] Rate: 67 P: 33 WY: 217 QRS: -36 QRSD: 110 T: 70 QT: 412 QTc: 435 Interpretive Statements Sinus rhythm Borderline prolonged [place] interval Left axis deviation Baseline wander in lead(s) II,III,aVF Compared to ECG 10/15/2017 07:59:00 Sinus bradycardia no longer present Electronically Signed On 10-16-2017 16:21:31 CDT by Jose M Martinez [email or web address] <ELECTRONICALLY SIGNED> By: Jose M Martinez MD, [facility] 10/16/17 1621 1402 1402 Jose M Martinez MD, [facility] /EPI
--- NOTE | 2017-10-16 16:26 | EKG ---
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 : 1945 Requested By: Jose M Martinez Order Number: [id number] Anali MD: Jose M Martinez Measurements Intervals [place] Rate: 55 P: 26 ID: 200 QRS: -33 QRSD: 110 T: 116 QT: 491 QTc: 470 Interpretive Statements Sinus rhythm Abnormal R-wave progression, late transition Inferior infarct, old Abnrm T, consider ischemia, anterolateral lds Compared to ECG 10/15/2017 07:59:00 Myocardial infarct finding now present Possible ischemia now present Sinus bradycardia no longer present Electronically Signed On 10-16-2017 16:26:36 CDT by Jose M Martinez [email or web address] <ELECTRONICALLY SIGNED> By: Jose M Martinez MD, [facility] 10/16/17 1626 0607 0607 Jose M Martinez MD, FAC /EPI
--- NOTE | 2017-10-17 11:05 | CARD ---
[address] [address] CARDIAC CATH REPORT Name: MARIA G BASILIO Room: [address] Katya Thomas#: [id number] Admission: 10/15/17 Attend Phys: Jose M Martinez MD, Discharge: 10/16/17 Date of : 43 Report #: [id number] THIS REPORT FOR: //name// APPROVED REPORT Study performed: 10/15/2017 07:53:09 Patient Details Patient Status: Out-Patient Room #: The patient is a 72 year-old male Event Personnel Jose M Martinez Solutions Operator, Shereen Hernandez RN Stone Rigger, Selin Mackenzie RTR Monitor, Maria G Melton Scrub Procedures Performed LILA Place w/wo Plasty Single LAD; left heart catheterization left ventriculography and selective coronary angiography Indication Unstable angina Risk Factors Hypercholesterolemia, Hypertension Previous Procedures/Diagnoses Previous PCI Admission/Lab Medications/Medications given during procedure Aspirin, Platelet Aff. Inhib., Angiomax bolus and infusion Procedure Narrative The patient was brought electively to the Cardiac Catheterization Laboratory and was prepped and draped in a sterile manner. The right femoral was infiltrated with 1% Lidocaine subcutaneous anesthesia. A Leola 6 FR sheath was inserted into the Right Femoral Artery. Coronary angiography was performed using coronary diagnostic catheters. The right coronary system was accessed and visualized with a Diagnostic JR4 catheter. The left coronary system was accessed and visualized with a Diagnostic JL4 catheter. The left ventricle was accessed and visualized with a Diagnostic Straight Pigtail catheter. Left ventricular/Aortic Valve gradient assessed via catheter pullback. Left ventriculogram was performed in MARTINEZ projection. Closure device was deployed with [place] [address] CARDIAC CATH REPORT Name: BASILIOMARIA G [address] [id number] Admission: 10/15/17 Attend Phys: Jose M Martinez MD, Discharge: 10/16/17 Date of : 43 Report #: [id number] 6Fr. Intraoperative Conscious Sedation Sedation start time: 9:25 Case end Time: 10:32 Fentanyl 50 mcg Versed 2 mg Fluoro Time: 14.5 minutes Dose: DAP 152903 cGycm2 2955 mGy Contrast Type and Amount: Visipaque 430 ml Diagnostic Cath Left Main 0% narrowing LAD 30% proximal narrowing with tandem 90 and 70% mid vessel stenosis with 80-90% apical LAD narrowing Circumflex Dominant vessel with a widely patent proximal stent widely patent first marginal stent with 60% distal circumflex narrowing Right Coronary Small nondominant vessel with 90% mid vessel narrowing Left Ventriculography The left ventricle is normal in size with contractility. The left ventricular ejection fraction is estimated to be 60%. Left ventricular wall motion abnormalities are present. There is no mitral insufficiency. There is mild anterior hypokinesis IVUS Intravascular Ultrasound was performed on the mid left anterior descending artery segment vessel. A Guide Catheter was used to engage the 6FR XB 3.5 100CM ostium. A IG: ProwaterFlex 180CM was used. IVUS Findings NC Trek RX 2.5 X 12 Hemodynamics The aortic pressure is 124/57 mmHg with a mean of 80 mmHg. The left ventricular pressure is 138/5 mmHg with a mean of mmHg. The left ventricular end diastolic pressure is 14 mmHg. PCI Technique Lesion Anticoagulation was achieved with Angiomax. Patient was preloaded with Angiomax IV 15 ml. Percutaneous coronary intervention was performed on the mid left anterior descending artery segment. The lesion stenosis prior to intervention was 90% with ANGELA 3 flow. A 6FR XB 3.5 100CM Guide Catheter was used to engage the ostium. A IG: [place] [address] CARDIAC CATH REPORT Name: MARIA G BASILIO Room: [address] William#: [id number] Admission: 10/15/17 Attend Phys: Jose M Martinez MD, Discharge: 10/16/17 Date of : 41 Report #: [id number] ProwaterFlex 180CM Interventional Guidewire was used to cross the lesion. BALLOON DILATION A Balloon catheter Trek RX 2.25 X 12 was inserted and inflated up to 12.00atm for 10seconds. Additional Inflation: 16.00atm for 13seconds. Additional Inflation: 16.00atm for 12seconds. STENT DEPLOYMENT A drug-eluting stent Xience Alpine RX 2.5X23 was inserted and inflated up to 12atm for 10seconds. Final angiography reveals 15 % stenosis with ANGELA 3 flow. PCI Technique Lesion Percutaneous coronary intervention was performed on the mid left anterior descending artery segment. A 6FR XB 3.5 100CM Guide Catheter was used to engage the ostium. A IG: ProwaterFlex 180CM Interventional Guidewire was used to cross the lesion. BALLOON DILATION A Balloon catheter NC Trek RX 2.5 X 12 was inserted and inflated up to 12.00atm for 3seconds. Additional Inflation: 14.00atm for 9seconds. Additional Inflation: 17.00atm for 10seconds. STENT DEPLOYMENT A drug-eluting stent Xience Alpine RX 2.5X23 was inserted and inflated up to 10.00atm for 10seconds. Additional Inflation: 12.00atm for 8seconds. Conclusion #1 significant coronary artery disease characterized by the following: A 30% proximal LAD narrowing with tandem 90 and 75% mid LAD stenosis and 80-90% apical LAD narrowing B dominant circumflex with widely patent proximal stent and widely patent first marginal stent with 60% distal narrowing C small nondominant right coronary artery with 90% mid vessel narrowing #2 normal global left ventricular systolic function, estimate ejection fraction being 60% with [place] [address] CARDIAC CATH REPORT Name: MARIA G BASILIO Room: [address] Katya Thomas#: [id number] Admission: 10/15/17 Attend Phys: Jose M Martinez MD, Discharge: 10/16/17 Date of : 41 Report #: [id number] #3 normal left-sided hemodynamics study #4 successful percutaneous coronary intervention with deployment of a drug-eluting stent spanning 90 and 75% mid LAD stenosis with 10% residual narrowing and ANGELA-3 flow the distal vessel Recommendations Cardiac Risk Reduction Program Aggressive Medical Therapy Medications Administered Aspirin (any) Prasugrel Diagnostic Cath Approved by: Jose M Martinez MD Date/Time: 10/17/2017 11:03:20 <ELECTRONICALLY SIGNED> By: Jose M Martinez MD, [facility] 10/17/17 1105 1105 1105Jose M Martinez MD, FACC /INF
--- NOTE | 2017-10-17 11:27 | D ---
[address] [address] DISCHARGE SUMMARY Name: MARIA G BASILIO Room: [address] Katya Thomas#: [id number] Admission: 10/15/17 Attend Phys: Jose M Martinez MD, Discharge: 10/16/17 Date of : 41 Report #: [id number] THIS REPORT FOR: //name// CC: Jose M Isabel [facility] DATE OF SERVICE: 10/16/2017 FINAL DISCHARGE DIAGNOSES: 1. Unstable angina. 2. Coronary artery disease. 3. Status post prior percutaneous coronary intervention of the circumflex and percutaneous coronary intervention to the left anterior descending on 10/15/2017. 4. Hyperlipidemia. 5. Hypertension. PROCEDURES: 10/15/2017 -- left heart catheterization, selective coronary arteriography, and percutaneous coronary intervention to the LAD. HOSPITAL COURSE: The patient is a very pleasant and active 72-year-old male with a history of complex coronary artery disease. Several weeks ago, he presented with unstable angina and underwent stenting of the proximal circumflex and the first marginal branch. He had moderate LAD lesions noted at that time. He had done well until several weeks ago when he noted recrudescence of chest pain typical of his ischemic syndrome with exertion. In the context of hypertension, hyperlipidemia, and the aforementioned clinical scenario, I recommend recatheterization. This was undertaken on 10/15/2017 and it revealed sequential 90% and 75% mid LAD stenoses with widely patent circumflex stents. I deployed one drug-eluting stent spanning the 2 areas in the mid LAD with 10% residual narrowing and ANGELA 3 flow of the distal vessel. The patient did well post procedurally and there was good hemostasis at the right femoral site of catheterization. Laboratory on 10/16/2017 revealed a sodium 140, potassium 4.3, BUN 13, creatinine 0.9. Hemoglobin 14.4, white blood cell count 5100 with 153,000 platelets. The patient ambulated in the hallways without difficulty. He was discharged to home on the following medications: Amlodipine 5 mg daily, aspirin 81 mg daily, atorvastatin 10 mg daily, carvedilol 25 mg b.i.d., fish oil 1000 mg daily, glucosamine 500 mg daily, Imdur 30 mg daily, multivitamin with minerals 1 tablet daily, omeprazole 20 mg daily and Effient 10 mg daily with additional 30 mg given radha-procedurally, and p.r.n. [place] [address] DISCHARGE SUMMARY Name: MARIA G BASILIO Room: [address] Katya Thomas#: [id number] Admission: 10/15/17 Attend Phys: Jose M Martinez MD, Discharge: 10/16/17 Date of : 41 Report #: [id number] required. The patient is scheduled to return to see [place] on 12/30/2017 at 0900 with an echocardiogram prior to that visit. The patient is discharged to home in stable condition on the aforementioned medications with followup as iterated above. <ELECTRONICALLY SIGNED> By: Jose M Martinez MD, FACC 10/17/17 1127 0931 [id number] Martinez MD, FAC /nt
== END 2017-10-16 11:01 | disposition home or self-care (01) ==
LOC: M.CL 07:21 → M.TBA-CV 10:46 → M.2W 11:22
PROVIDERS: ADMIT Internal Medicine
DX: I25.110 Atherosclerotic heart disease of native coronary artery with unstable angina pectoris (principal); I10 Essential (primary) hypertension; E78.5 Hyperlipidemia, unspecified; Z79.82 Long term (current) use of aspirin

== ENCOUNTER 2017-10-29 09:58 | Inpatient (IN) | payer MEDICARE, BC ==
[2017-10-29] VITALS (9 sets, daily range): BP systolic 104–172; BP diastolic 51–90
[~2017-10-29] VITALS: Ht 175.3 cm; Wt 99.8 kg
--- NOTE | ~2017-10-29 | H ---
[address] [address] HISTORY AND PHYSICAL Name: MARIA G BASILIO Room: [address] [place] .R.#: [id number] Admission: 10/29/17 Attend Phys: Jose M Martinez MD, Discharge: 10/30/17 Date of : 41 Report #: [id number] THIS REPORT FOR: //name// Please refer to the History and Physical performed in the physician's office. By: [id number] Records Staff CHAVO /SARAH
[~2017-10-29 09:58] MED LIST changes: +IMDUR 30 MG TAB30 M1 PO; +NORVASC5 MG PO
[2017-10-29 10:50] LABS: HEMATOCRIT 37.8 % (42.0-52.0); HEMOGLOBIN 13.5 gm/dL (14.0-18.0); MCH 32.1 pg (26.0-34.0); MCHC 35.7 g/dL (28.0-37.0); MCV 89.9 fL (80.0-100.0); MPV 7.8 fl. (7.2-11.1); RBC 4.2 mil/uL (4.50-6.00); RDW-CV 13.5 % (10.5-14.5); WBC 3.1 thou/uL (4.0-11.0)
[2017-10-29 11:01] LABS: ANION GAP 6 mmol/L (7-16); BUN 12 mg/dL (7-18); CALCIUM 9.1 mg/dL (8.5-10.1); CHLORIDE 103 mmol/L (98-107); CO2 28 mmol/L (21-32); CREATININE 0.9 mg/dL (0.6-1.3); GLUCOSE 160 mg/dL (70-99); POTASSIUM 4.1 mmol/L (3.5-5.1); SERUM ASSESSMENT Clear; SODIUM 137 mmol/L (136-145)
[2017-10-29 11:04] LABS: APTT 26.6 Seconds (25.0-31.3); PROTIME 10.7 Seconds (9.20-11.50)
[2017-10-29 11:05] LABS: ALBUMIN 3.9 g/dL (3.4-5.0); ALKALINE PHOSPHATASE 68 U/L (46-116); CHOLESTEROL 126 mg/dL (<200); HDL CHOLESTEROL 54 mg/dL (>40); LDL CHOLESTEROL 62 mg/dL (<100); SGOT 15 U/L (15-37); SGPT 22 U/L (30-65); TC:HDL 2.3 Ratio (Not establshd); TOTAL BILIRUBIN 0.6 mg/dL (<0.1-1.0); TOTAL PROTEIN 7.3 g/dL (6.4-8.2); TRIGLYCERIDE 53 mg/dL (<150); VLDL 11 mg/dL (<40)
--- NOTE | 2017-10-29 17:28 | EKG ---
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 <ELECTRONICALLY SIGNED> By: Jose M Martinez MD, [facility] 10/29/17 1728 1059 1059 Jose M Martinez MD, [facility] /EPI
--- NOTE | 2017-10-29 17:30 | EKG ---
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[facility] : 1945 Requested By: Jose M Martinez Order Number: [id number] Anali MD: Jose M Martinez Measurements Intervals [place] Rate: 52 P: 20 VT: 198 QRS: -33 QRSD: 110 T: 66 QT: 457 QTc: 425 Interpretive Statements Sinus rhythm Atrial premature complex Left axis deviation possible inferior scar Compared to ECG 10/16/2017 06:07:08 Atrial premature complex(es) now present Left-axis deviation now present Possible ischemia no longer present Electronically Signed On 10-29-2017 17:30:45 CDT by Jose M Martinez [email or web address] <ELECTRONICALLY SIGNED> By: Jose M Martinez MD, [facility] 10/29/17 1730 1528 1528 Jose M Martinez MD, [facility] /EPI
[2017-10-30] VITALS (11 sets, daily range): BP systolic 84–188; BP diastolic 49–104
[2017-10-30 04:10] LABS: HEMATOCRIT 36.5 % (42.0-52.0); HEMOGLOBIN 12.8 gm/dL (14.0-18.0); MCH 31.9 pg (26.0-34.0); MCHC 35.1 g/dL (28.0-37.0); MPV 7.6 fl. (7.2-11.1); RBC 4.01 mil/uL (4.50-6.00); RDW-CV 13.6 % (10.5-14.5); WBC 5.4 thou/uL (4.0-11.0)
[2017-10-30 04:38] LABS: ALBUMIN 3.7 g/dL (3.4-5.0); CREATININE 0.8 mg/dL (0.6-1.3); POTASSIUM 3.8 mmol/L (3.5-5.1); TOTAL BILIRUBIN 0.6 mg/dL (<0.1-1.0); TOTAL PROTEIN 6.6 g/dL (6.4-8.2); TROPONIN-I LEVEL 0.52 ng/mL (<0.06)
[2017-10-30] MEDS ORDERED: FISH OIL 1,001000 M2 PO ×2 (10:05→10:06)
[2017-10-30] MEDS ORDERED: COLACE100 MG PO (10:09)
--- NOTE | 2017-10-30 16:45 | EKG ---
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1945 Requested By: Jose M Martinez Order Number: [id number] Anali MD: Jose M Martinez Measurements Intervals [place] Rate: 70 P: 11 CO: 196 QRS: -34 QRSD: 109 T: 80 QT: 410 QTc: 443 Interpretive Statements Sinus rhythm Left axis deviation Compared to ECG 10/29/2017 15:28:57 Atrial premature complex(es) no longer present Electronically Signed On 10-30-2017 16:45:20 CDT by Jose M Martinez [email or web address] <ELECTRONICALLY SIGNED> By: Jose M Martinez MD, [facility] 10/30/17 1645 0756 0756 Jose M Martinez MD, [facility] /EPI
--- NOTE | 2017-10-30 18:34 | D ---
[address] [address] DISCHARGE SUMMARY Name: BASILIOMARIA G Room: [address] IN M.R.#: [id number] Admission: 10/29/17 Attend Phys: Jose M Martinez MD, Discharge: 10/30/17 Date of : 41 Report #: [id number] THIS REPORT FOR: //name// CC: Jose M [facility] DATE OF SERVICE: 10/30/2017 FINAL DISCHARGE DIAGNOSES: 1. Unstable angina. 2. Coronary artery disease. 3. Status post prior percutaneous coronary intervention of the left anterior descending and percutaneous coronary intervention of the distal left anterior descending and distal circumflex on . 4. Hypertension. 5. Hyperlipoproteinemia. PROCEDURES: 10/29/2017 -- left heart catheterization, selective coronary arteriography and percutaneous coronary intervention with deployment of drug-eluting stents in distal LAD and distal circumflex. HOSPITAL COURSE: The patient is a very pleasant 72-year-old male with hypertension, hypercholesterolemia, and coronary artery disease. He has had unstable angina, status post prior stent in the LAD with recurrent chest pain. He had abnormal EKG suggesting anteroapical abnormalities. At catheterization, the previously placed mid LAD stents were widely patent with 90% most apical LAD stenosis and 80% mid and distal circumflex stenoses. I deployed one 2.0 x 18 mm Integrity [place] stent in the distal LAD and 2 drug-eluting stent in the mid and distal circumflex respectively with 0 and 10% residual narrowing at the respective sites following stent deployment. The patient was continued on dual antiplatelet therapy with aspirin and Effient and continued on his antihypertensive and lipid-lowering therapy. There was good hemostasis at the right femoral site of catheterization. LABORATORY DATA: On 10/30/2017 revealed sodium of 142, potassium of 3.8, BUN of 9, creatinine of 0.8, glucose 135 mg percent. Troponin 0.52. Hemoglobin 12.8, white blood cell count 5400 with 161,000 platelets. Cholesterol 126, HDL 54, LDL 62, triglycerides 53 mg percent. DISCHARGE MEDICATIONS: The patient was discharged home on the following medications: Aspirin 81 mg daily, atorvastatin 10 mg daily, carvedilol 25 mg b.i.d., fish oil 1000 mg daily, glucosamine 500 mg daily, Imdur 30 mg daily, multivitamins with minerals 1 tablet daily, omeprazole 20 mg daily, prasugrel 10 mg daily and p.r.[place]. [place] [address] DISCHARGE SUMMARY Name: MARIA G BASILIO Room: [address]#: [id number] Admission: 10/29/17 Attend Phys: Jose M Martinez MD, Discharge: 10/30/17 Date of : 43 Report #: [id number] The patient is scheduled to see by nurse practitioner on 11/10/2017 at 10:30 and myself 2-4 weeks later. <ELECTRONICALLY SIGNED> By: Jose M Martinez MD, [facility] 10/30/17 1834 0942 [id number] Olu Martinez MD, [facility] /nt
--- NOTE | 2017-11-06 09:41 | CARD ---
[address] [address] CARDIAC CATH REPORT Name: MARIA G BASILIO Room: [address] IN ..#: [id number] Admission: 10/29/17 Attend Phys: Jose M Martinez MD, Discharge: 10/30/17 Date of : 41 Report #: [id number] THIS REPORT FOR: //name// APPROVED REPORT Study performed: 10/29/2017 11:34:55 Patient Details Patient Status: Out-Patient Room #: The patient is a 72 year-old male Event Personnel Jose M Martinez Electrical Sign Wirer Helper, Olivia Carreon RN Jewel Bearing Broacher, Selin Mackenzie RTR Monitor, Maria G Melton Anderson, Diane Monitor, Cassidy Tubbs RN Jewel Bearing Broacher Procedures Performed Art Access - R femoral artery* , Left Heart CatheterizationLeft Heart Cath w/LT VGram [id number] LHCLV , Selective Right and Left Coronary AngiographyDES Place w/wo Plasty Single CIRC 009329 LILA Place w/wo Plasty Single LAD [id number] Indication Unstable angina Risk Factors Hypercholesterolemia, Hypertension Admission/Lab Medications/Medications given during procedure Aspirin, Platelet Aff. Inhib., Angiomax bolus and infusion Procedure Narrative The patient was brought electively to the Cardiac Catheterization Laboratory and was prepped and draped in a sterile manner. The left femoral was infiltrated with 2% Lidocaine subcutaneous anesthesia. A [place] 6 FR sheath was inserted into the left femoral artery. Coronary angiography was performed using coronary diagnostic catheters. The right coronary system was accessed and visualized with a 6fr JR 4 catheter. The left coronary system was accessed and visualized with a 6fr JL 4 catheter. The left ventricle was accessed and visualized with a 6fr pigtail catheter. Left ventricular/Aortic Valve gradient assessed via catheter pullback. Pre-demployment femoral angiogram was performed . Closure device was deployed with a 6 Fr Angioseal STS 6Fr. The patient tolerated the procedure well and there were no complications associated with the procedure. 6fr 11cm [place] [address] CARDIAC CATH REPORT Name: MARIA G BASILIO Room: [address]#: [id number] Admission: 10/29/17 Attend Phys: Jose M Martinez MD, Discharge: 10/30/17 Date of : 41 Report #: [id number] Arterial sheath exchanged for 6fr 23cm sheath due to tortuosityin the aorta. Intraoperative Conscious Sedation Sedation start time: 12:07 Case end Time: 13:54 Fentanyl 75 mcg Versed 3 mg Fluoro Time: 33.5 minutes Dose: DAP 722631 cGycm2 5093.26 mGy Contrast Type and Amount: Visipaque 800 ml Diagnostic Cath Left Main 0% narrowing LAD 40% proximal LAD narrowing with widely patent mid LAD stents and 90% apical LAD stenosis Circumflex Prominent vessel with 40% proximal narrowing, 60% narrowing of the first marginal branch and 80% distal circumflex stenosis Right Coronary Modest size vessel with 90% mid vessel stenosis by prior catheter Left Ventriculography Left Ventriculography was not performed. Hemodynamics The aortic pressure is 144/60 mmHg with a mean of mmHg. The left ventricular pressure is 143/6 mmHg with a mean of mmHg. The left ventricular end diastolic pressure is 17 mmHg. There was no gradient across the aortic valve upon pullback. PCI Technique Lesion Percutaneous coronary intervention was performed on the distal left anterior descending artery segment. The lesion stenosis prior to intervention was 90% with ANGELA 3 flow. A 6F XB LAD 3.5 Guide Catheter was used to engage the ostium. A IG: ProwaterFlex 180CM Interventional Guidewire was used to cross the lesion. BALLOON DILATION A Balloon catheter Mini Trek RX 2.0 X 12 was inserted and inflated up to 8.00atm for 9seconds. Additional Inflation: 10.00atm for 11seconds. STENT DEPLOYMENT A drug-eluting stent [place] RX Stent 2.0X18mm was inserted and inflated up to 10.00atm for 8seconds. Additional Inflation: 12.00[place]m [place] [address] CARDIAC CATH REPORT Name: MARIA G BASILIO Room: [facility] [place] M.R.#: [id number] Admission: 10/29/17 Attend Phys: Jose M Martinez MD, Discharge: 10/30/17 Date of : 43 Report #: [id number] for 12seconds. Additional Inflation: 12.00atm for 8seconds. Final angiography reveals 0 % stenosis with ANGELA 3 flow. PCI Technique Lesion 2 Percutaneous Coronary Intervention was performed on the distal circumflex artery segment. The lesion stenosis prior to intervention was 80% with ANGELA 3 flow. A 6F XB LAD 3.5 Guide Catheter was used to engage the ostium. A IG: ProwaterFlex 180CM Interventional Guidewire was used to cross the lesion. Balloon Dilation A Balloon catheter Mini Trek RX 2.0 X 12 was inserted and inflated up to 14.00atm for 7seconds. Additional Inflation: 14.00atm for 5seconds. Stent Deployment A drug-eluting stent [place] RX Stent 2.0X18mm was inserted and inflated up to 14.00atm for 10seconds. Final angiography reveals 20 % stenosis with ANGELA 3 flow. PCI Technique Lesion 3 Percutaneous Coronary Intervention was performed on the mid circumflex artery segment. Balloon Dilation A Balloon catheter NC [place] 2.25x 12 was inserted and inflated up to 14atm for 12seconds. Stent Deployment A drug-eluting stent Con RX Stent 2.0X12mm was inserted and inflated up to 16.00atm for 12seconds. Additional Inflation: 18.00atm for 6seconds. Additional Inflation: 18.00atm for 7seconds. Conclusion #1 significant coronary artery disease characterized by the following: A 40% proximal LAD narrowing with widely patent mid LAD stents and 90% distal LAD stenosis B 40% proximal circumflex narrowing with 60% narrowing of the first marginal branch and 80% distal circumflex stenosis C 90% narrowing in the midportion of modest sized right coronary [address] [address] CARDIAC CATH REPORT Name: MARIA G BASILIO Room: [address] [facility] IN M.R.#: [id number] Admission: 10/29/17 Attend Phys: Jose M Martinez MD, Discharge: 10/30/17 Date of : 41 Report #: [id number] artery as previously defined #2 normal left-sided hemodynamics study #3 successful percutaneous coronary intervention with deployment of drug-eluting stent at the site of 90% distal LAD stenosis with 0% residual narrowing #4 successful percutaneous coronary intervention with deployment of drug-eluting stent at site of 80% tubular distal circumflex narrowing with 20% residual narrowing and ANGELA-3 flow the distal vessel Recommendations Cardiac Risk Reduction Program Aggressive Medical Therapy Medications Administered Aspirin (any) Prasugrel Diagnostic Cath Approved by: Jose M Martinez MD Date/Time: 11/06/2017 09:40:37 <ELECTRONICALLY SIGNED> By: Jose M Martinez MD, [facility] 11/06/1741 0 Jose M Martinez MD, FACC /INF
== END 2017-10-30 13:23 | disposition home or self-care (01) | DRG 247 ==
LOC: M.CL 09:58 → M.TBA-CV 14:10 → M.ICU 15:06 → M.TBA-CV 15:06 → M.ICU 15:28
PROVIDERS: ADMIT Internal Medicine
PROC: 4A023N7 Measurement of Cardiac Sampling and Pressure, Left Heart, Percutaneous Approach (ICD-10-PCS; principal; 2017-10-29)
PROC: B2111ZZ Fluoroscopy of Multiple Coronary Arteries using Low Osmolar Contrast (ICD-10-PCS; 2017-10-29)
PROC: B2151ZZ Fluoroscopy of Left Heart using Low Osmolar Contrast (ICD-10-PCS; 2017-10-29)
PROC: 027136Z Dilation of Coronary Artery, Two Arteries with Three Drug-eluting Intraluminal Devices, Percutaneous Approach (ICD-10-PCS; 2017-10-29)
DX: I25.110 Atherosclerotic heart disease of native coronary artery with unstable angina pectoris (principal); I50.32 Chronic diastolic (congestive) heart failure; I11.0 Hypertensive heart disease with heart failure; E78.5 Hyperlipidemia, unspecified; E78.00 Pure hypercholesterolemia, unspecified; Z91.038 Other insect allergy status

== ENCOUNTER 2017-11-12 09:06 | Observation (INO) | payer MEDICARE, BC ==
[2017-11-12] VITALS (15 sets, daily range): BP systolic 112–175; BP diastolic 63–97
--- NOTE | ~2017-11-12 | H ---
[address] [address] HISTORY AND PHYSICAL Name: MARIA G BASILIO Room: [address] Katya Thomas#: [id number] Admission: 11/12/17 Attend Phys: Jose M Martinez MD, Discharge: 11/13/17 Date of : 43 Report #: [id number] THIS REPORT FOR: //name// Please refer to the History and Physical performed in the physician's office. By: 1001Medical Records Staff CHAVO /SARAH
[~2017-11-12 09:06] MED LIST changes: +COLACE100 MG PO
[2017-11-12 09:44] LABS: HEMATOCRIT 39.2 % (42.0-52.0); HEMOGLOBIN 13.9 gm/dL (14.0-18.0); MCH 31.9 pg (26.0-34.0); MCHC 35.4 g/dL (28.0-37.0); MCV 90.2 fL (80.0-100.0); MPV 7.8 fl. (7.2-11.1); RBC 4.34 mil/uL (4.50-6.00); RDW-CV 13.7 % (10.5-14.5); WBC 3.3 thou/uL (4.0-11.0)
[2017-11-12 09:53] LABS: CREATININE 0.9 mg/dL (0.6-1.3); POTASSIUM 4.1 mmol/L (3.5-5.1)
[2017-11-12 09:58] LABS: ALBUMIN 4.3 g/dL (3.4-5.0); TOTAL BILIRUBIN 0.6 mg/dL (<0.1-1.0); TOTAL PROTEIN 7.7 g/dL (6.4-8.2)
[2017-11-12 10:00] LABS: INR 1.1; PROTIME 10.8 Seconds (9.20-11.50)
--- NOTE | 2017-11-12 17:28 | EKG ---
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1945 Requested By: Jose M Martinez Order Number: [id number] Anali MD: Jose M Martinez Measurements Intervals [place] Rate: 55 P: -2 WI: 205 QRS: -35 QRSD: 109 T: 96 QT: 423 QTc: 405 Interpretive Statements Sinus rhythm Left axis deviation Nonspecific T abnormalities, lateral leads Compared to ECG 10/30/2017 07:56:25 T-wave abnormality now present Electronically Signed On 11-12-2017 17:28:12 CDT by Jose M Martinez [email or web address] <ELECTRONICALLY SIGNED> By: Jose M Martinez MD, [facility] 11/12/17 1728 0955 0955 Jose M Martinez MD, [facility] /EPI
--- NOTE | 2017-11-12 17:30 | EKG ---
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: [facility] : 1945 Requested By: Jose M Martinez Order Number: [id number] Anali MD: Jose M Martinez Measurements Intervals [place] Rate: 65 P: 13 [place]: 205 QRS: -30 QRSD: 109 T: 77 QT: 425 QTc: 442 Interpretive Statements Sinus rhythm Left axis deviation Abnormal R-wave progression, early transition Compared to ECG 10/30/2017 07:56:25 No significant changes Electronically Signed On 11-12-2017 17:29:50 CDT by Jose M Martinez [email or web address] <ELECTRONICALLY SIGNED> By: Jose M Martinez MD, [facility] 11/12/17 1729 1335 1335 Jose M Martinez MD, [facility] /EPI
--- NOTE | 2017-11-12 17:31 | EKG ---
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 : 1945 Requested By: Jose M Martinez Order Number: [id number] Anali MD: Jose M Martinez Measurements Intervals [place] Rate: 81 P: 0 [place]: 207 QRS: -41 QRSD: 109 T: 63 QT: 393 QTc: 457 Interpretive Statements Sinus rhythm Left axis deviation Abnormal R-wave progression, late transition Compared to ECG 10/30/2017 07:56:25 No significant changes Electronically Signed On 11-12-2017 17:31:09 CDT by Jos eM Martinez [email or web address] <ELECTRONICALLY SIGNED> By: Jose M Martinez MD, [facility] 11/12/17 1731 1550 1550 Jose M Martinez MD, FACC /EPI
--- NOTE | 2017-11-12 18:14 | NUR ---
PT RECEIVED FROM CUSTOMER SUPPORT SPECIALIST AT 1445. ALERT AND ORIENTED X4. SATURATION MAINTAINED IN ROOM AIR. PT COMPLAINED OF CHEST PAIN, INFORMED DOCTOR, MEDICATION GIVEN. NO DRAINAGE IN THE GROIN SITE. ESCOBEDO PRESENT. CALL LIGHT WITHIN REACH. FALL PRECAUTIIONS MAINTAINED. BED ELEVATED TO 30 DEGREES. CAN MOVE AFTER 1930. 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 WILL CONTINUE TO MONITOR.
[2017-11-13] VITALS: BP 135/77
[2017-11-13 04:00] VITALS: BP 168/84
[2017-11-13 04:59] LABS: HEMOGLOBIN 12.3 gm/dL (14.0-18.0); MCH 31.6 pg (26.0-34.0); MCV 90.2 fL (80.0-100.0); MPV 7.9 fl. (7.2-11.1); RBC 3.88 mil/uL (4.50-6.00); RDW-CV 13.7 % (10.5-14.5); WBC 5.3 thou/uL (4.0-11.0)
[2017-11-13 05:09] LABS: ALBUMIN 3.7 g/dL (3.4-5.0); ALKALINE PHOSPHATASE 64 U/L (46-116); ANION GAP 7 mmol/L (7-16); BUN 8 mg/dL (7-18); CALCIUM 8.3 mg/dL (8.5-10.1); CHLORIDE 104 mmol/L (98-107); CHOLESTEROL 116 mg/dL (<200); CO2 28 mmol/L (21-32); CREATININE 0.8 mg/dL (0.6-1.3); GLUCOSE 140 mg/dL (70-99); HDL CHOLESTEROL 40 mg/dL (>40); LDL CHOLESTEROL 61 mg/dL (<100); SGOT 16 U/L (15-37); SGPT 19 U/L (30-65); SODIUM 139 mmol/L (136-145); TC:HDL 2.9 Ratio (Not establshd); TOTAL BILIRUBIN 0.7 mg/dL (<0.1-1.0); TOTAL PROTEIN 6.5 g/dL (6.4-8.2); TRIGLYCERIDE 76 mg/dL (<150); VLDL 15 mg/dL (<40)
[2017-11-13 05:19] LABS: SERUM ASSESSMENT Clear
[2017-11-13 05:20] LABS: TROPONIN-I LEVEL 1.03 ng/mL (<0.06)
--- NOTE | 2017-11-13 05:59 | NUR ---
ASSUMED PT CARE AT 1930. NURSING ASSESSMENT COMPLETED AT START OF SHIFT. PT VOICED NO CONCERNS THIS SHIFT. DENIES CHEST PAIN THIS SHIFT. 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 RIGHT AND LEFT GROIN DRESSINGS CLEAN, DRY, AND INTACT. HOURLY ROUNDING COMPLETED. CALL LIGHT WITHIN REACH. IV FLUIDS INFUSING.
--- NOTE | 2017-11-13 07:03 | NUR ---
REMOVED PT ESCOBEDO CATHETER AT 0635. PT TOLERATED WELL. VOICED NO CONCERNS. CALL LIGHT WITHIN REACH.
[2017-11-13 10:00] VITALS: BP 143/76
--- NOTE | 2017-11-13 10:14 | CARD ---
[address] [address] CARDIAC CATH REPORT Name: MARIA G BASILIO Room: [address] Katya Thomas#: [id number] Admission: 11/12/17 Attend Phys: Jose M Martinez MD, Discharge: Date of : 43 Report #: [id number] THIS REPORT FOR: //name// APPROVED REPORT Study performed: 11/12/2017 10:21:10 Patient Details Patient Status: Out-Patient Room #: The patient is a 72 year-old male Event Personnel Jose M Martinez Clinical Cytogeneticist Scientist, Olivia Carreon RN Contact Clerk, Marsha Bowman Monitor, Maria G Melton Scrub Procedures Performed Coronary Angiography, PTCA with Stenting; selective coronary angiography, FFR Indication Unstable angina Risk Factors Hypercholesterolemia, Hypertension Previous Procedures/Diagnoses Previous PCI Admission/Lab Medications/Medications given during procedure Aspirin, Platelet Aff. Inhib., Angiomax bolus and infusion Procedure Narrative The patient was brought electively to the Cardiac Catheterization Laboratory and was prepped and draped in a sterile manner. The right femoral was infiltrated with 2% Lidocaine subcutaneous anesthesia. A 6Fr X 35cm Sheath sheath was inserted into the right femoral artery. Coronary angiography was performed using coronary diagnostic catheters. The left coronary system was accessed and visualized with a 6fr JL 4 catheter. Pre-demployment femoral angiogram was performed . Closure device was deployed with a 6 Fr Angioseal STS 6Fr. The patient tolerated the procedure well and there were no complications associated with the procedure. There was no hematoma. Left groin accessed and 6fr 11cm sheath inserted. Unable to pass wire. Right groin then accessed with 6fr 23cm Sheath. Procedure performed. Angioseal [place] [address] CARDIAC CATH REPORT Name: MARIA G BASILIO Room: [address] Katya Thomas#: [id number] Admission: 11/12/17 Attend Phys: Jose M Martinez MD, Discharge: Date of : 41 Report #: [id number] Intraoperative Conscious Sedation Sedation start time: 10:49 Case end Time: 13:00 Fentanyl 100 mcg Versed 2 mg Fluoro Time: 32.3 minutes Dose: DAP 374356 cGycm2 5250.90 mGy Contrast Type and Amount: 850 Diagnostic Cath Left Main 30% distal narrowing LAD 50% proximal LAD in-stent restenosis with 75% tubular mid LAD narrowing and focal 80% distal LAD stenosis Circumflex 40% proximal narrowing with 40% distal narrowing and 50% narrowing of the proximal portion of the first marginal branch Right Coronary Small vessel which had been previously been defined to be totally occluded IVUS Anticoagulation was achieved with Heparin. 7500 Fractional Flow [place] was performed on the distal left anterior descending artery segment vessel. A 6fr XB LAD 3.5 Guide Catheter was used to engage the ostium. A FFR wire was used. IVUS Findings FFR 73 Hemodynamics The aortic pressure is 159/80 mmHg with a mean of mmHg. PCI Technique Lesion Percutaneous coronary intervention was performed on the mid left anterior descending artery segment. The lesion stenosis prior to intervention was 75% with ANGELA 3 flow. A 6F XB LAD 3.5 Guide Catheter was used to engage the LCA ostium. A Pressure Wire 175cm Interventional Guidewire was used to cross the lesion. BALLOON DILATION A Balloon catheter Trek RX 2.25 X 20 was inserted and inflated up to 10.00atm for 9seconds. STENT DEPLOYMENT A drug-eluting stent Con RX Stent 2.03I66ua was inserted and inflated up to 10.00atm for 7seconds. Additional Inflation: 14.00atm [place] 14[place]. [place] [address] CARDIAC CATH REPORT Name: MARIA G BASILIO Room: [address] Katya Thomas#: [id number] Admission: 11/12/17 Attend Phys: Jose M Martinez MD, Discharge: Date of : 41 Report #: [id number] POST STENT DEPLOYMENT BALLOON DILATION A Balloon catheter NC Trek RX 2.25x12 was inserted and inflated up to 14.00atm for 6seconds. Additional Inflation: 15.00atm for 8seconds. Additional Inflation: 14.00atm for 8seconds. 16 YOSHI X 7 Seconds 16ATM X 6 Seconds Final angiography reveals 0 % stenosis with ANGELA 3 flow. PCI Technique Lesion Anticoagulation was achieved with 7500. The lesion stenosis prior to intervention was distal left anterior descending artery segment% with ANGELA 6fr XB LAD 3.5 flow. A FFR wire Interventional Guidewire was used to cross the lesion. BALLOON DILATION A Balloon catheter FFR 73 was inserted and inflated up to yoshi for seconds. PCI Technique Lesion 2 Percutaneous Coronary Intervention was performed on the proximal left anterior descending artery segment. The lesion stenosis prior to intervention was 50% with ANGELA 3 flow. Balloon Dilation A Balloon catheter NC Trek RX 3.0 X 12 was inserted and inflated up to 18.00atm for 8seconds. Additional Inflation: 20.00atm for 10seconds. Additional Inflation: 22.00atm for 9seconds. 24 YOSHI X 10 Seconds Final angiography reveals 10 % stenosis with ANGELA 3 flow. BALLOON DILATION A Balloon catheter NC Trek RX 3.25 X 12 was inserted and inflated up to 15atm for 9seconds. Additional Inflation: 16.00atm for 7seconds. Additional Inflation: 17atm for 9seconds. PCI Technique Lesion 3 Percutaneous Coronary Intervention was performed on the distal left anterior descending artery segment. The lesion stenosis prior to intervention was 80% with ANGELA 3 flow. A IG: [place] 190cm Interventional Guidewire was used to cross the lesion. Stent Deployment A drug-eluting stent Con RX Stent 2.0X8mm was inserted and inflated up to 10.00atm for 8seconds. Additional Inflation: 12.00[place] [address] CARDIAC CATH REPORT Name: MARIA G BASILIO Room: [address] Katya MNashR.#: [id number] Admission: 11/12/17 Attend Phys: Jose M Martinez MD, Discharge: Date of : 41 Report #: [id number] 6seconds. Final angiography reveals 0 % stenosis with ANGELA 3 flow. PCI Technique Lesion Percutaneous coronary intervention was performed on the distal left anterior descending artery segment. STENT DEPLOYMENT A drug-eluting stent Con RX Stent 2.0X18mm was inserted and inflated up to 10.00atm for 7seconds. Additional Inflation: 12atm for 8seconds. Additional Inflation: 14.00atm for 6seconds. Conclusion #1 significant coronary artery disease characterized by the following: A 30% distal left main coronary artery narrowing B 50% proximal LAD in-stent restenosis with 75% tubular mid LAD narrowing and 80% focal distal LAD stenosis C nondominant circumflex with 40% proximal narrowing 40% distal narrowing and 50% narrowing in the proximal portion of first marginal branch D right coronary artery totally occluded with [id number]-dh-ahglh collaterals filling the distal right coronary artery #2 mild systemic systolic hypertension #3 FFR calculated in the distal LAD with a minimum value 0.73, suggesting hemodynamic significance of the proximal mid and distal LAD stenoses on careful pullback #4 successful percutaneous coronary intervention with deployment of drug-eluting stents at the stent site of 75% mid and 80% focal distal LAD stenosis with 0% residual narrowings and ANGELA-3 flow the distal vessel #5 successful percutaneous transluminal coronary angioplasty at the site of 50% proximal LAD in-stent restenosis with 10% residual narrowing and ANGELA-3 flow the distal vessel. Recommendations Cardiac Rehabilitation Referral [address] [address] CARDIAC CATH REPORT Name: MARIA G BASILIO Room: [address] Katya MNashRNash#: [id number] Admission: 11/12/17 Attend Phys: Jose M Martinez MD, Discharge: Date of : 41 Report #: [id number] Cardiac Risk Reduction Program Aggressive Medical Therapy Medications Administered Prasugrel Diagnostic Cath Approved by: Jose M Martinez MD Date/Time: 11/13/2017 10:12:20 <ELECTRONICALLY SIGNED> By: Jose M Martinez MD, FACC 11/13/17 1013 1013 1013Jotanisha Martinez MD, FACC /INF
--- NOTE | 2017-11-13 10:30 | NUR ---
MET WITH PT TO DISCUSS HOME SITUATION/DC PLANNING. PT LIVES WITH , IS INDEPENDENT AND ACTIVE. USES NO EQUIPMENT AND PLANS TO RETURN HOME TODAY. NO NEEDS ID'D
--- NOTE | 2017-11-13 11:53 | NUR ---
ASSUMED PT CARE AT 0730. ALERT AND ORIENTED X4. SATURATION MAINTAINED IN RA. VSS AND CHARTED. NO COMPLAINS OF CHEST PAIN OR SOB. CALL LIGHT WITHIN REACH. FALL PRECAUTIONS MAINTAINED. UP INDEPENDENTLY. PT WALKED AROUND THE FLOOR WITH SPOUSE. NO S/S OF BLEDING OR DRAINAGE FROM RT AND LFT GROIN. CARDIAC TELE MONITOR RUNNING SR WITH BBB. ORDERS OF DISCHARGE RECIEVED. EDUCATION ON FOLLOW UP GIVEN. IV OUT AND CARDIAC TELE MONITOR RETURNED TO DESK. PT WALKED DOWN WITH SPOUSE AT 1150.
--- NOTE | 2017-11-13 16:45 | EKG ---
[place] [address] ELECTROCARDIOGRAM REPORT Name: MARIA G BASILIO Room: [address]R.#: [id number] Admission: 11/12/17 Attend Phys: Jose M Martinez MD, Discharge: 11/13/17 Date of : 41 Report #: [id number] THIS REPORT FOR: //name// 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: : 1945 Requested By: Jose M Martinez Order Number: [id number] Anali MD: Jose M Martinez Measurements Intervals [place] Rate: 66 P: 7 [place]: 209 QRS: -33 QRSD: 110 T: 98 QT: 416 QTc: 436 Interpretive Statements Sinus rhythm Left axis deviation Abnormal R-wave progression, late transition Nonspecific T abnrm, anterolateral leads Baseline wander in lead(s) V3 Compared to ECG 11/12/2017 15:50:37 No significant changes Electronically Signed On 11-13-2017 16:45:09 CDT by Jose M Martinez [email or web address] <ELECTRONICALLY SIGNED> By: Jose M Martinez MD, FAC 11/13/17 1645 [id number] [id number] Jose M Martinez MD, [facility] /EPI
--- NOTE | 2017-11-14 10:34 | D ---
[address] [address] DISCHARGE SUMMARY Name: PRAFULMARIA G Kamara Room: [address] Katya Thomas#: [id number] Admission: 11/12/17 Attend Phys: Jose M Martinez MD, Discharge: 11/13/17 Date of : 41 Report #: [id number] THIS REPORT FOR: //name// CC: Jose M Cardonadeep DATE OF SERVICE: 11/13/2017 FINAL DISCHARGE DIAGNOSES: 1. Unstable angina. 2. Coronary artery disease. 3. Status post percutaneous coronary intervention of the left anterior descending. 4. Hypertension. 5. Hypercholesterolemia. PROCEDURES: On 11/12/2017 -- selective coronary arteriography, fractional flow reserve pertinent to the LAD and deployment of sequential drug-eluting stents in the mid and distal LAD. HOSPITAL COURSE: The patient is a very pleasant 72-year-old male with complex coronary artery disease status post prior stenting of the LAD and the circumflex. He presented with increasing angina following a pattern of clinical instability. Nuclear stress test demonstrated anteroapical ischemia. In this context, I performed cardiac catheterization on 11/12/2017, which revealed patent proximal LAD stent with tubular 70% mid LAD stenosis and a widely patent distal LAD stent. There was a widely patent distal circumflex stent with 40% more distal narrowing. I performed fractional flow reserve on the LAD with a minimal value of 0.73, suggesting hemodynamic significance largely related to disease in the mid to distal LAD. I deployed one 2.25 x 24 mm Lamont Integrity drug-eluting stent in mid LAD and 2 short drug-eluting stents in the distal LAD with 0% residual narrowing and ANGELA 3 flow of the distal vessel. The patient had transitory chest discomfort post procedure, which resolved after nitroglycerin. He subsequently ambulated in the hallways and there was no recurrent chest discomfort. Troponin did rise minimally to 1.03. There were no significant ischemic ST-T alterations noted on sequential EKGs. The patient ambulated in the hallway subsequent without difficulty. LABORATORY DATA: On 11/13/2017 demonstrated the following: Hemoglobin 12.3, white blood cell count 5300 with 156,000 platelets. Potassium 4.0, BUN 8, creatinine 0[place] [address] DISCHARGE SUMMARY Name: MARIA G BASILIO [address] [id number] Admission: 11/12/17 Attend Phys: Jose M Martinez MD, Discharge: 11/13/17 Date of : 41 Report #: [id number] LDL cholesterol 61 with a total cholesterol of 116 mg percent. There was good hemostasis at both femoral sites with modest left femoral ecchymosis. That approach was attempted, but by virtue of marked tortuosity I did the procedure from the right femoral approach. DISCHARGE MEDICATION: He was discharged home on the following medications: Aspirin 81 mg daily, atorvastatin 10 mg daily, carvedilol 25 mg b.i.d., fish oil 1000 mg daily, glucosamine 500 mg daily, Imdur 30 mg b.i.d., multivitamin tablet with iron and minerals 1 tablet daily, omeprazole 20 mg daily, prasugrel 10 mg daily with 30 mg radha-procedural dose, and p.r.n. sublingual nitroglycerin. I will plan to see the patient in the office in 10 days for his continuing care. Thus, the patient is discharged to home in stable condition on the aforementioned medications with followup as iterated above. <ELECTRONICALLY SIGNED> By: Jose M Martinez MD, [facility] 11/14/17 [id number] Martinez MD, FAC /nt
== END 2017-11-13 12:00 | disposition home or self-care (01) ==
LOC: M.CL 09:06 → M.TBA-CV 13:21 → M.2W 14:54
PROVIDERS: ADMIT Internal Medicine
DX: I25.110 Atherosclerotic heart disease of native coronary artery with unstable angina pectoris (principal); I10 Essential (primary) hypertension; E78.00 Pure hypercholesterolemia, unspecified; E66.9 Obesity, unspecified; M10.9 Gout, unspecified; Z68.30 Body mass index [BMI] 30.0-30.9, adult; Z95.5 Presence of coronary angioplasty implant and graft; Z87.891 Personal history of nicotine dependence; Z72.89 Other problems related to lifestyle; Z79.82 Long term (current) use of aspirin; Z79.899 Other long term (current) drug therapy; Z98.890 Other specified postprocedural states; Z79.01 Long term (current) use of anticoagulants